=== PATIENT | female | born 1940 | race Caucasian/White ===

== ENCOUNTER 2016-10-31 19:10 | Emergency (ER) | payer MEDICARE, OTHER | END 2016-10-31 22:37 | disposition home or self-care (01) | LOC: ER1 19:10 | DX: H92.02 Otalgia, left ear (principal); E11.9 Type 2 diabetes mellitus without complications; I10 Essential (primary) hypertension; Z88.0 Allergy status to penicillin; Z88.5 Allergy status to narcotic agent; Z88.8 Allergy status to other drugs, medicaments and biological substances; Z79.84 Long term (current) use of oral hypoglycemic drugs; Z79.82 Long term (current) use of aspirin; Z79.899 Other long term (current) drug therapy | CPT/HCPCS: 70450; 99283 ==

== ENCOUNTER 2016-11-14 11:53 | Emergency (ER) | payer MEDICARE, OTHER ==
[2016-11-14 12:58] LABS: HEMOGLOBIN 9.9 gm/dl (12.3-15.3); RED BLOOD COUNT 3.23 M/UL (4.00-5.10); WHITE BLOOD COUNT 8.1 K/UL (4.5-11.0)
[2016-11-14 13:18] LABS: BUN/CREATININE RATIO 14 (0-10)
== END 2016-11-14 20:22 | disposition home or self-care (01) ==
LOC: ER1 11:53
PROVIDERS: Family Medicine
DX: M54.5 Low back pain (principal); K59.00 Constipation, unspecified; E11.9 Type 2 diabetes mellitus without complications; I10 Essential (primary) hypertension; E78.5 Hyperlipidemia, unspecified; Z88.0 Allergy status to penicillin; Z88.5 Allergy status to narcotic agent; Z88.8 Allergy status to other drugs, medicaments and biological substances; Z79.82 Long term (current) use of aspirin; Z79.84 Long term (current) use of oral hypoglycemic drugs; Z79.899 Other long term (current) drug therapy
CPT/HCPCS: 36415; 71010; 80053; 81001; 83605; 85025; 86140; 87040; 93970; 96374; 96375; 99283; J2270; J2405

== ENCOUNTER 2020-09-06 11:15 | Emergency (ER) | payer MEDICARE ==
[2020-11-30] MEDS ORDERED: NITROSTAT0.4 MG SL (12:23)
[2020-11-30] MEDS ORDERED: ROPINIROLE HC0.25 MG PO (12:24)
[2020-11-30] MEDS ORDERED: TRAZODONE HCL50 MG PO (12:25)
[2020-11-30] MEDS ORDERED: CATAPRES 0.1MG0.1 MG PO (12:25)
[2020-11-30] MEDS ORDERED: ZYRTEC10 MG PO (12:26)
[2020-11-30] MEDS ORDERED: VICTOZA 1818 MG/3 ML SQ (12:26)
[2020-11-30] MEDS ORDERED: HYDROCHLOROTH12.5 MG PO (12:27)
[2020-11-30] MEDS ORDERED: VITAMIN D21250 MCG PO (12:27)
[2020-11-30] MEDS ORDERED: IRBESARTAN75 MG PO (12:28)
[2020-11-30] MEDS ORDERED: ZEBETA 5 MG TAB5 MG PO (12:28)
[2020-11-30] MEDS ORDERED: OMEPRAZOLE20 MG PO (12:30)
[2020-11-30] MEDS ORDERED: METFORMIN HCL1000 MG PO (12:31)
[2020-11-30] MEDS ORDERED: TRAMADOL HCL50 MG PO (15:28)
== END 2020-09-06 12:58 | disposition home or self-care (01) ==
LOC: ER1 11:15
DX: R59.0 Localized enlarged lymph nodes (principal); E78.5 Hyperlipidemia, unspecified; E11.9 Type 2 diabetes mellitus without complications; Z20.822 Contact with and (suspected) exposure to COVID-19; K21.9 Gastro-esophageal reflux disease without esophagitis; I10 Essential (primary) hypertension; J45.909 Unspecified asthma, uncomplicated; D64.9 Anemia, unspecified; Z20.828 Contact with and (suspected) exposure to other viral communicable diseases; Z88.0 Allergy status to penicillin; Z88.5 Allergy status to narcotic agent; Z88.8 Allergy status to other drugs, medicaments and biological substances; Z79.899 Other long term (current) drug therapy
CPT/HCPCS: 99283

== ENCOUNTER → 2020-10-22 | Outpatient (CLI) | payer MEDICARE ==
[~2020-10-22] MED LIST: CATAPRES 0.1MG0.1 MG PO; HYDROCHLOROTH12.5 MG PO; IRBESARTAN75 MG PO; METFORMIN HCL1000 MG PO; NITROSTAT0.4 MG SL; OMEPRAZOLE20 MG PO; ROPINIROLE HC0.25 MG PO; TRAMADOL HCL50 MG PO; TRAZODONE HCL50 MG PO; VICTOZA 1818 MG/3 ML SQ; VITAMIN D21250 MCG PO; ZEBETA 5 MG TAB5 MG PO; ZYRTEC10 MG PO
== END ==
LOC: CT 07:57
DX: R10.9 Unspecified abdominal pain (principal); R93.2 Abnormal findings on diagnostic imaging of liver and biliary tract; Z90.49 Acquired absence of other specified parts of digestive tract
CPT/HCPCS: 36415; 82565; Q9967

== ENCOUNTER → 2020-11-30 | Day surgery (SDC) | payer MEDICARE | END | disposition home or self-care (01) | LOC: OR 11:12 | PROVIDERS: Podiatrist Foot & Ankle Surgery | PROC: 0SQP0ZZ Repair Right Toe Phalangeal Joint, Open Approach (ICD-10-PCS; principal; 2020-11-30 12:30) | DX: M20.41 Other hammer toe(s) (acquired), right foot (principal); M67.371 Transient synovitis, right ankle and foot; E11.42 Type 2 diabetes mellitus with diabetic polyneuropathy; B35.1 Tinea unguium; I25.10 Atherosclerotic heart disease of native coronary artery without angina pectoris; I10 Essential (primary) hypertension; E78.5 Hyperlipidemia, unspecified; K21.9 Gastro-esophageal reflux disease without esophagitis; Z20.822 Contact with and (suspected) exposure to COVID-19; Z88.0 Allergy status to penicillin; Z88.5 Allergy status to narcotic agent; Z88.8 Allergy status to other drugs, medicaments and biological substances; Z91.048 Other nonmedicinal substance allergy status; Z79.84 Long term (current) use of oral hypoglycemic drugs; Z79.899 Other long term (current) drug therapy | CPT/HCPCS: 73630; 82962; C1713; J1100; J2001; J2405; J2704; J7030; J7120 ==

== ENCOUNTER → 2021-07-01 | Outpatient (CLI) | payer MEDICARE | LOC: HEART CORB 06-20 10:30 | DX: R07.2 Precordial pain (principal); R94.31 Abnormal electrocardiogram [ECG] [EKG] | CPT/HCPCS: 78452; A9502; J2785 ==

== ENCOUNTER 2021-10-18 09:08 | Emergency (ER) | payer OTHER ==
[2021-10-18 09:49] LABS: HEMOGLOBIN 11.9 gm/dl (12.3-15.3); RED BLOOD COUNT 3.84 M/UL (4.00-5.10); WHITE BLOOD COUNT 14.4 K/UL (4.5-11.0)
[2021-10-18 10:16] LABS: BUN/CREATININE RATIO 22 (0-10)
[2021-10-18] MEDS ORDERED: OMNICEF 300 MG300 MG PO (14:38)
== END 2021-10-18 14:50 | disposition home or self-care (01) ==
LOC: ER1 09:08
PROVIDERS: Student in an Organized Health Care Education/Training Program
DX: N39.0 Urinary tract infection, site not specified (principal); E87.6 Hypokalemia; R53.83 Other fatigue; R10.30 Lower abdominal pain, unspecified; E11.9 Type 2 diabetes mellitus without complications; I10 Essential (primary) hypertension; Z90.49 Acquired absence of other specified parts of digestive tract
CPT/HCPCS: 71045; 80053; 81001; 82550; 82553; 83605; 84484; 85025; 85652; 86140; 87040; 96374; 99285; J0696; Q9967